=== PATIENT | female | born 1980 | race African-American/Black ===

== ENCOUNTER 2018-04-10 23:55 | Emergency (ER) | payer MEDICAID ==
[~2018-04-10] VITALS: Ht 167.6 cm; Wt 84.8 kg
[2018-04-11 00:24] VITALS: BP 145/93
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
--- NOTE | 2018-04-11 00:48 | NUR ---
Patient being evaluated by physician at bedside.
--- NOTE | 2018-04-11 00:54 | NUR ---
FAMILY AT BEDSIDE
[2018-04-11] MEDS ORDERED: IBUPROFEN 800 MG TAB PO ONE (00:55)
[2018-04-11] MEDS ORDERED: CYCLOBENZAPRINE 10 MG TAB PO ONE (00:55)
[2018-04-11 02:39] VITALS: BP 133/76
--- NOTE | 2018-04-11 02:39 | NUR ---
Patient discharged with v/s stable. Written and verbal after care instructions given and explained. Patient alert, oriented and verbalized understanding of instructions. Ambulatory with steady gait. All questions addressed prior to discharge. ID band removed. Patient advised to follow up with PMD. Rx of Ibuprofen and Flexeril given. Patient educated on indication of medication including possible reaction and side effects. Opportunity to ask questions provided and answered.
== END 2018-04-11 02:39 | disposition home or self-care (01) ==
LOC: MED 23:55
DX: S20.20XA Contusion of thorax, unspecified, initial encounter (principal); E07.9 Disorder of thyroid, unspecified; Z88.0 Allergy status to penicillin; Z88.2 Allergy status to sulfonamides; Z88.8 Allergy status to other drugs, medicaments and biological substances; V89.2XXA Person injured in unspecified motor-vehicle accident, traffic, initial encounter; Y93.89 Activity, other specified; Y92.89 Other specified places as the place of occurrence of the external cause; Y99.8 Other external cause status
CPT/HCPCS: 71101; 81025; 99283

== ENCOUNTER 2018-05-07 13:31 | Emergency (ER) | payer MEDICAID ==
[~2018-05-07] VITALS: Ht 167.6 cm; Wt 88.1 kg
[2018-05-07 13:48] VITALS: BP 169/109
--- NOTE | 2018-05-07 14:26 | NUR ---
PATIENT AMB. TO BED #7
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
[2018-05-07] MEDS ORDERED: KETOROLAC 60 MG/2 ML VIAL IM ONE (14:35)
--- NOTE | 2018-05-07 15:05 | NUR ---
Patient being evaluated by physician at bedside.
[2018-05-07 15:50] VITALS: BP 165/95
--- NOTE | 2018-05-07 15:50 | NUR ---
Patient discharged with v/s stable. Written and verbal after care instructions given and explained. Patient alert, oriented and verbalized understanding of instructions. Ambulatory with steady gait. All questions addressed prior to discharge. ID band removed. Patient advised to follow up with PMD. Rx of MOTRIN, NORCO, VALIUM given. Patient educated on indication of medication including possible reaction and side effects. Opportunity to ask questions provided and answered.
== END 2018-05-07 15:50 | disposition home or self-care (01) ==
LOC: MED 13:31
DX: M54.2 Cervicalgia (principal); R51 Headache; R11.0 Nausea; J45.909 Unspecified asthma, uncomplicated; I10 Essential (primary) hypertension; E07.9 Disorder of thyroid, unspecified; Z88.1 Allergy status to other antibiotic agents; Z88.0 Allergy status to penicillin; Z88.2 Allergy status to sulfonamides; Z90.49 Acquired absence of other specified parts of digestive tract
CPT/HCPCS: 81002; 81025; 96372; 99283; J1885

== ENCOUNTER 2018-11-03 16:21 | Emergency (ER) | payer MEDICAID ==
[~2018-11-03] VITALS: Ht 170.2 cm; Wt 84.4 kg
[2018-11-03 16:29] VITALS: BP 159/90
--- NOTE | 2018-11-03 16:31 | NUR ---
PT TRIAGED AND AMBULATED TO ER LOBBY
--- NOTE | 2018-11-03 20:12 | NUR ---
PT AMBULATED TO BED 9
--- NOTE | 2018-11-03 20:15 | NUR ---
PT CAME INTO THE ER WITH C/O PAIN TO THE LEFT SIDE/BOTTOM LIP. PT STATEDS SHE HAS A SORE ON HER LIP. PT HAS PAIN LEVEL 8/10 AT THIS TIME. PT IS A/O X4. NO DRAINAGE FROM SIGHT. PT HAS SOME SWELLING TO LIP. NO OTHER SORES NOTED ON MOUTH. ER MD MADE AWARE OF STATUS. SAFETY PRECAUTIONS IN PLACE, BED RAILS X 1 ARE UP.
--- NOTE | 2018-11-03 20:24 | NUR ---
Dr. Wise evaluating patient at bedside.
[2018-11-03 20:50] VITALS: BP 159/90
--- NOTE | 2018-11-03 20:50 | NUR ---
Patient discharged with v/s stable. Written and verbal after care instructions given and explained. Patient alert, oriented and verbalized understanding of instructions. Ambulatory with steady gait. All questions addressed prior to discharge. ID band removed. Patient advised to follow up with PMD. Pt advised to utilize chapstick and to avoid licking around her lips. Rx of Acyclovir 800mg given. Pt instructed to complete anti-viral treatment. Patient educated on indication of medication including possible reaction and side effects. Opportunity to ask questions provided and answered.
== END 2018-11-03 20:50 | disposition home or self-care (01) ==
LOC: MED 16:21
DX: B00.1 Herpesviral vesicular dermatitis (principal); J45.909 Unspecified asthma, uncomplicated; I10 Essential (primary) hypertension; E07.9 Disorder of thyroid, unspecified; Z88.1 Allergy status to other antibiotic agents; Z88.0 Allergy status to penicillin; Z88.2 Allergy status to sulfonamides
CPT/HCPCS: 81002; 81025; 99283

== ENCOUNTER 2019-04-13 23:40 | Emergency (ER) | payer MEDICAID ==
[~2019-04-13] VITALS: Ht 167.6 cm; Wt 86.2 kg
[2019-04-13 23:50] VITALS: BP 120/77
--- NOTE | 2019-04-13 23:53 | NUR ---
[facility] A/W BED AMBULATORY
--- NOTE | 2019-04-14 02:02 | NUR ---
PT ABULATED TO BED 5
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
--- NOTE | 2019-04-14 04:48 | NUR ---
PATIENT LEFT WITHOUT BEING SEEN BY DR. MCCARTNEY. NO FURTHER CARE PROVIDED FOR PATIENT.
== END 2019-04-14 04:48 | disposition left against medical advice (07) ==
LOC: MED 23:40
DX: L03.116 Cellulitis of left lower limb (principal); L03.115 Cellulitis of right lower limb; Z53.21 Procedure and treatment not carried out due to patient leaving prior to being seen by health care provider

== ENCOUNTER 2021-12-09 15:27 | Emergency (ER) | payer MEDICAID ==
[~2021-12-09] VITALS: Ht 167.6 cm; Wt 101.6 kg
[2021-12-09 15:43] VITALS: BP 120/76
[2021-12-09] MEDS ORDERED: IBUPROFEN 600 MG TAB PO ONE (15:55)
--- NOTE | 2021-12-09 16:02 | NUR ---
41/F PRESENTS TO ED WITH C/O LEFT KNEE PAIN, PATIENT DENIES RECENT INJURY OR TRAUMA. STATES PAIN CAME ON SUDDENLY AND HAS PROGRESSIVELY GOTTEN WORSE WHEN ATTEMPTING TO WALK/RUN. PATIENT REPORTS TAKING MOTRIN WITH MILD RELIEF, LEFT KNEE APPEARS SLIGHTLY RED AND SWOLLEN, SITE IS TENDER TO TOUCH.
--- NOTE | 2021-12-09 16:03 | NUR ---
RECORDS ASSOCIATE AT BEDSIDE
[2021-12-09] MEDS ORDERED: IBUP-2213 PO (16:53)
[2021-12-09 17:02] VITALS: BP 120/76
== END 2021-12-09 17:03 | disposition home or self-care (01) ==
LOC: MED 15:27
DX: S86.812A Strain of other muscle(s) and tendon(s) at lower leg level, left leg, initial encounter (principal); M17.12 Unilateral primary osteoarthritis, left knee; J45.909 Unspecified asthma, uncomplicated; I10 Essential (primary) hypertension; E07.9 Disorder of thyroid, unspecified; Z88.0 Allergy status to penicillin; Z88.2 Allergy status to sulfonamides; Z88.1 Allergy status to other antibiotic agents; Z79.899 Other long term (current) drug therapy; W19.XXXA Unspecified fall, initial encounter; Y93.89 Activity, other specified; Y92.89 Other specified places as the place of occurrence of the external cause; Y99.8 Other external cause status
CPT/HCPCS: 73562; 99283; Q0092

== ENCOUNTER 2021-12-11 07:48 | Emergency (ER) | payer MEDICAID ==
[~2021-12-11] VITALS: Ht 167.6 cm; Wt 1.8 kg
[~2021-12-11 07:48] MED LIST: IBUP-2213 PO
[2021-12-11 07:49] VITALS: BP 110/82
--- NOTE | 2021-12-11 08:02 | NUR ---
PT AMB TO BED 7. HANDED ON URINE CUP.
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
--- NOTE | 2021-12-11 08:30 | NUR ---
DR. OCAMPO BEDSIDE EVALUATING PT
[2021-12-11] MEDS ORDERED: ACETAMINOPHEN EXTRA STRENGTH 500 MG TAB PO ONE (08:35)
--- NOTE | 2021-12-11 08:44 | NUR ---
urine collected and walked to lab
--- NOTE | 2021-12-11 09:18 | NUR ---
XRAY AT PATIENT BEDSIDE
--- NOTE | 2021-12-11 09:44 | NUR ---
Patient appears to be resting comfortably in bed. Vital Signs within normal limits. Respirations even and unlabored.
[2021-12-11 10:38] VITALS: BP 138/94
[2021-12-11] MEDS ORDERED: NAPR-1871 PO (10:51)
== END 2021-12-11 10:38 | disposition home or self-care (01) ==
LOC: MED 07:48
DX: M25.472 Effusion, left ankle (principal); J45.909 Unspecified asthma, uncomplicated; I10 Essential (primary) hypertension; E07.9 Disorder of thyroid, unspecified; Z98.890 Other specified postprocedural states; Z79.899 Other long term (current) drug therapy; Z88.0 Allergy status to penicillin; Z88.1 Allergy status to other antibiotic agents; Z88.2 Allergy status to sulfonamides
CPT/HCPCS: 73600; 81002; 81025; 99283

== ENCOUNTER 2022-02-11 06:35 | Emergency (ER) | payer MEDICAID ==
[~2022-02-11] VITALS: Ht 167.6 cm; Wt 100.7 kg
[~2022-02-11 06:35] MED LIST changes: +NAPR-1871 PO
[2022-02-11 06:42] VITALS: BP 111/97
--- NOTE | 2022-02-11 06:48 | NUR ---
PT TAKEN TO ER BED 03
[2022-02-11] MEDS ORDERED: GABAPENTIN 300 MG CAP PO ONE (07:00)
--- NOTE | 2022-02-11 07:10 | NUR ---
41 Y.O. C/O numbness x 2 weeks, Patient reported, had numbness left 2 fingers for 2 weeks. BS 382. DENIES N/V/D, SOB AND CHEST PAIN. A&OX4, SKIN INTACT, STEADY GAIT, AND VITALS WNL. PMHx : DM (stop medications), HTN, HLD, Arthritis, ASTHMA ALLERGIES:SULFA, PENICILLIN,
--- NOTE | 2022-02-11 07:20 | NUR ---
Pt report given to [place]. Transfer of care at this time.
--- NOTE | 2022-02-11 07:25 | NUR ---
Report recieved from DARRION Zamarripa for transfer of care.
[2022-02-11 07:29] LABS: BASOPHILS % (AUTO) 0.5 % (0.0-2.0); EOSINOPHILS # (AUTO) 0.1 K/uL (0-0.4); EOSINOPHILS % (AUTO) 1.6 % (0.0-4.0); HEMOGLOBIN 12.5 g/dL (12.0-16.0); LYMPHOCYTES # (AUTO) 2.4 K/uL (2.5-16.5); LYMPHOCYTES % (AUTO) 41.2 % (20.5-51.1); MEAN CORPUSCULAR HEMOGLOBIN 29 pg (27-31); MEAN CORPUSCULAR HGB CONC 33 g/dL (33-37); MEAN CORPUSCULAR VOLUME 86.3 fL (80-94); MONOCYTES # (AUTO) 0.4 K/uL (0.8-1.0); MONOCYTES % (AUTO) 6.4 % (1.7-9.3); NEUTROPHILS # (AUTO) 2.9 K/uL (1.8-7.7); NEUTROPHILS % (AUTO) 50.3 % (42.2-75.2); PLATELET COUNT (AUTO) 281 K/uL (140-450); RED CELL DISTRIBUTION WIDTH 12.9 % (11.6-13.7); WHITE BLOOD COUNT (AUTO) 5.9 K/uL (4.8-10.8)
[2022-02-11] MEDS ORDERED: GABAPENTIN 100 MG CAP ONE (07:37)
[2022-02-11 07:51] LABS: ALBUMIN 3.1 g/dL (3.4-5.0); ANION GAP 11.3 (8-16); CARBON DIOXIDE 27.8 mmol/L (21-32); CREATININE 0.8 mg/dL (0.6-1.3); POTASSIUM 4.1 mmol/L (3.5-5.1); TOTAL BILIRUBIN 0.3 mg/dL (0.0-1.0)
[2022-02-11 08:33] LABS: APPEARANCE,URINE HAZY (CLEAR); BILIRUBIN,URINE NEGATIVE (NEGATIVE); BLOOD, URINE NEGATIVE (NEGATIVE); COLOR,URINE YELLOW (YELLOW); LEUKOCYTE ESTERASE ,URINE NEGATIVE (NEGATIVE); NITRITE, URINE NEGATIVE (NEGATIVE); UGLUCOSE 3+ (NEGATIVE)
[2022-02-11] MEDS ORDERED: INSULIN REGULAR, HUMAN 100 UNIT/ML VIAL SUBQ ONE (09:00)
--- NOTE | 2022-02-11 09:00 | NUR ---
Dr. Pearson re-evaluating patient at bedside.
[2022-02-11] MEDS ORDERED: LANC-886 TP (09:09)
[2022-02-11] MEDS ORDERED: BLOO1EAC40 MC (09:09)
[2022-02-11] MEDS ORDERED: METF-346 PO (09:09)
--- NOTE | 2022-02-11 09:35 | NUR ---
FABRICATED L WRIST SPLINT APPLIED TO PT L WRIST. + CMS AFTER APPLICATION. PT TOLERATED SPLINT.
--- NOTE | 2022-02-11 09:53 | NUR ---
Patient discharged with v/s stable. Written and verbal after care instructions given. Patient alert, oriented and verbalized understanding of instructions. Ambulatory with steady gait. All questions addressed prior to discharge. ID band removed. Patient advised to follow up with PMD. Rx of Blood-Glucose Meter, Lancets and Metformin given. Opportunity to ask questions provided and answered.
[2022-02-11 09:54] VITALS: BP 122/85
--- NOTE | 2022-02-11 09:54 | NUR ---
The patient's care was reviewed and supervised by Yomaira Grove RN.
== END 2022-02-11 09:53 | disposition home or self-care (01) ==
LOC: MED 06:35
DX: E11.40 Type 2 diabetes mellitus with diabetic neuropathy, unspecified (principal); E11.65 Type 2 diabetes mellitus with hyperglycemia; E03.9 Hypothyroidism, unspecified; J45.909 Unspecified asthma, uncomplicated; I10 Essential (primary) hypertension; Z79.4 Long term (current) use of insulin; Z79.899 Other long term (current) drug therapy; Z88.0 Allergy status to penicillin; Z88.2 Allergy status to sulfonamides; Z88.1 Allergy status to other antibiotic agents
CPT/HCPCS: 29125; 36415; 80053; 81003; 81025; 82009; 82948; 85025; 96372; 99283; J1815

== ENCOUNTER 2022-02-15 16:28 | Emergency (ER) | payer MEDICAID ==
[~2022-02-15] VITALS: Ht 167.6 cm; Wt 100.3 kg
[~2022-02-15 16:28] MED LIST changes: +BLOO1EAC40 MC; +LANC-886 TP; +METF-346 PO
[2022-02-15 16:42] VITALS: BP 131/91
== END 2022-02-15 18:42 | disposition home or self-care (01) ==
LOC: MED 16:28
DX: E88.09 Other disorders of plasma-protein metabolism, not elsewhere classified (principal); R60.0 Localized edema; E11.9 Type 2 diabetes mellitus without complications; E03.9 Hypothyroidism, unspecified; J45.909 Unspecified asthma, uncomplicated; I10 Essential (primary) hypertension; Z88.0 Allergy status to penicillin; Z88.2 Allergy status to sulfonamides; Z88.1 Allergy status to other antibiotic agents; Z79.4 Long term (current) use of insulin; Z79.899 Other long term (current) drug therapy
CPT/HCPCS: 81002; 81025; 99282

== ENCOUNTER 2022-05-13 20:09 | Emergency (ER) | payer MEDICAID ==
[~2022-05-13] VITALS: Ht 167.6 cm; Wt 100.2 kg
[2022-05-13 20:30] VITALS: BP 146/110
--- NOTE | 2022-05-13 20:39 | NUR ---
PT AMBULATED TO ED 8, REPORT GIVEN TO DAPHNE MAIER. PT PROVIDED URINE SAMPLE.
[2022-05-13] MEDS ORDERED: ALBUTEROL SULFATE/IPRATROPIU 3 ML SOL IH ONE (20:45)
--- NOTE | 2022-05-13 20:50 | NUR ---
SPOKE TO PATIENT AT BEDSIDE; PATIENT REPORTS COVID LIKE SYMPTOMS x4 DAYS *COUGHING, DIARRHEA, HEADACHE, FATIGUE PATIENT REPORTS GETTING ONE COVID VACCINE (MODERNA, IN NOVEMBER 2021) PATIENT STATES THAT SHE TOOK A HOME COVID TEST WHICH WAS (+). PATIENT HAS BEEN SELF TREATING SYMPTOMS AT HOME WITH THERA-FLU, ROBITUSSIN, AND MOTRIN. PMH: *ASTHMA *HTN *DM
--- NOTE | 2022-05-13 20:53 | NUR ---
RT AT BEDSIDE FOR TREATMENT
--- NOTE | 2022-05-13 20:54 | NUR ---
RADIOLOGY AT BEDSIDE FOR XRAY
[2022-05-13 22:58] VITALS: BP 132/98
== END 2022-05-13 22:55 | disposition home or self-care (01) ==
LOC: MED 20:09
DX: U07.1 COVID-19 (principal); J45.909 Unspecified asthma, uncomplicated; E11.9 Type 2 diabetes mellitus without complications; Z79.4 Long term (current) use of insulin; Z79.899 Other long term (current) drug therapy
CPT/HCPCS: 71045; 82948; 94640; 99284; Q0092

== ENCOUNTER 2023-03-11 18:34 | Emergency (ER) | payer MEDICAID ==
[~2023-03-11] VITALS: Ht 167.6 cm; Wt 97.1 kg
[2023-03-11 18:52] VITALS: BP 120/72; PULSE 94; RESP 16; TEMP 98.1; O2SAT 95
[2023-03-11] MEDS ORDERED: LIDOCAINE MPF 1% 10 MG/ML VIAL INJ ONE (19:45)
[2023-03-11] MEDS ORDERED: IBUPROFEN 600 MG TAB PO ONE (19:45)
[2023-03-11] MEDS ORDERED: BACI-418 TP (20:18)
[2023-03-11] MEDS ORDERED: BACITRACIN OINT 500 UNITS/GM PKT TP ONE (20:40)
[2023-03-11 20:51] VITALS: BP 122/72; PULSE 94; RESP 16; TEMP 98.1; O2SAT 95
== END 2023-03-11 20:51 | disposition home or self-care (01) ==
LOC: MED 18:34
DX: S81.812A Laceration without foreign body, left lower leg, initial encounter (principal); J45.909 Unspecified asthma, uncomplicated; E11.9 Type 2 diabetes mellitus without complications; I10 Essential (primary) hypertension; E07.9 Disorder of thyroid, unspecified; Z88.0 Allergy status to penicillin; Z88.1 Allergy status to other antibiotic agents; Z88.2 Allergy status to sulfonamides; Z79.84 Long term (current) use of oral hypoglycemic drugs; Z79.899 Other long term (current) drug therapy; W45.8XXA Other foreign body or object entering through skin, initial encounter; Y93.89 Activity, other specified; Y92.89 Other specified places as the place of occurrence of the external cause; Y99.8 Other external cause status
CPT/HCPCS: 12002; 99283; J2001

== ENCOUNTER 2023-03-19 12:51 | Emergency (ER) | payer MEDICAID ==
[~2023-03-19] VITALS: Ht 167.6 cm; Wt 94.1 kg
[~2023-03-19 12:51] MED LIST changes: +BACI-418 TP
[2023-03-19 13:08] VITALS: BP 127/79; PULSE 87; RESP 18; TEMP 97.7; O2SAT 95
[2023-03-19 14:15] VITALS: BP 127/79; PULSE 87; RESP 18; TEMP 97.7; O2SAT 95
== END 2023-03-19 14:15 | disposition home or self-care (01) ==
LOC: MED 12:51
DX: T78.49XA Other allergy, initial encounter (principal); J45.909 Unspecified asthma, uncomplicated; I10 Essential (primary) hypertension; E11.9 Type 2 diabetes mellitus without complications; E07.9 Disorder of thyroid, unspecified; Z48.02 Encounter for removal of sutures; Z88.0 Allergy status to penicillin; Z88.1 Allergy status to other antibiotic agents; Z88.2 Allergy status to sulfonamides; Z79.899 Other long term (current) drug therapy
CPT/HCPCS: 82948; 99282

== ENCOUNTER 2023-03-21 17:27 | Emergency (ER) | payer MEDICAID ==
[~2023-03-21] VITALS: Ht 167.6 cm; Wt 79.4 kg
[2023-03-21 17:47] VITALS: BP 179/104; PULSE 79; RESP 17; TEMP 97.7; O2SAT 98
[2023-03-21] MEDS ORDERED: BACITRACIN OINT 500 UNITS/GM PKT TP ONE (19:35)
[2023-03-21] MEDS ORDERED: LORA1T1237 PO (19:57)
[2023-03-21] MEDS ORDERED: CLIN300C2 PO (19:57)
[2023-03-21 20:47] VITALS: BP 133/76; PULSE 79; RESP 16; TEMP 97.9; O2SAT 98
== END 2023-03-21 20:47 | disposition home or self-care (01) ==
LOC: MED 17:27
DX: S81.812D Laceration without foreign body, left lower leg, subsequent encounter (principal); J45.909 Unspecified asthma, uncomplicated; I10 Essential (primary) hypertension; E11.9 Type 2 diabetes mellitus without complications; E03.9 Hypothyroidism, unspecified; Z79.4 Long term (current) use of insulin; Z79.899 Other long term (current) drug therapy; Z88.0 Allergy status to penicillin; Z88.2 Allergy status to sulfonamides; Z88.8 Allergy status to other drugs, medicaments and biological substances; X58.XXXD Exposure to other specified factors, subsequent encounter
CPT/HCPCS: 99283

== ENCOUNTER 2023-09-05 22:06 | Emergency (ER) | payer MEDICAID, OTHER ==
[~2023-09-05] VITALS: Ht 167.6 cm; Wt 89.8 kg
[~2023-09-05 22:06] MED LIST changes: +CLIN300C2 PO; +LORA1T1237 PO
[2023-09-05 22:27] VITALS: BP 167/87; PULSE 87; RESP 16; TEMP 96.4; O2SAT 96
[2023-09-06 00:51] VITALS: O2SAT 99
[2023-09-06 01:19] LABS: BASOPHILS % (AUTO) 0.8 % (0.0-2.0); EOSINOPHILS # (AUTO) 0.2 K/uL (0-0.4); EOSINOPHILS % (AUTO) 3.5 % (0.0-4.0); HEMOGLOBIN 12.5 g/dL (12.0-16.0); LYMPHOCYTES # (AUTO) 2.8 K/uL (2.5-16.5); LYMPHOCYTES % (AUTO) 42.6 % (20.5-51.1); MEAN CORPUSCULAR HEMOGLOBIN 29 pg (27-31); MEAN CORPUSCULAR HGB CONC 33 g/dL (33-37); MEAN CORPUSCULAR VOLUME 87.8 fL (80-94); MONOCYTES # (AUTO) 0.5 K/uL (0.8-1.0); MONOCYTES % (AUTO) 7.2 % (1.7-9.3); NEUTROPHILS % (AUTO) 45.9 % (42.2-75.2); PLATELET COUNT (AUTO) 310 K/uL (140-450); RED BLOOD CELL COUNT(AUTO) 4.33 MIL/uL (4.20-5.40); RED CELL DISTRIBUTION WIDTH 13.7 % (11.6-13.7); WHITE BLOOD COUNT (AUTO) 6.6 K/uL (4.8-10.8)
[2023-09-06] MEDS: hydrALAZINE 20 MG/ML VIAL IVP ONE ×2 (01:34→03:32)
[2023-09-06 01:35] LABS: ANION GAP 6.4 (8-16); CALCIUM 8.4 mg/dL (8.5-10.1); CARBON DIOXIDE 31.4 mmol/L (21-32); CREATININE 0.7 mg/dL (0.6-1.3); POTASSIUM 3.8 mmol/L (3.5-5.1)
[2023-09-06] MEDS: ONDANSETRON 4 MG/2 ML VIAL IVP ONE (03:27)
[2023-09-06] MEDS: MORPHINE SULFATE 4 MG/ML SYR IVP ONE (03:29)
[2023-09-06] MEDS ORDERED: LOSA-272 PO (04:04)
[2023-09-06] MEDS ORDERED: HYDR12.51 PO (04:04)
[2023-09-06 04:10] VITALS: BP 143/85; PULSE 92; RESP 17; TEMP 97.9; O2SAT 99
== END 2023-09-06 04:10 | disposition home or self-care (01) ==
LOC: MED 22:06
DX: I10 Essential (primary) hypertension (principal); R51.9 Headache, unspecified; J45.909 Unspecified asthma, uncomplicated; E11.9 Type 2 diabetes mellitus without complications; Z86.39 Personal history of other endocrine, nutritional and metabolic disease; Z90.49 Acquired absence of other specified parts of digestive tract; Z98.890 Other specified postprocedural states; Z79.899 Other long term (current) drug therapy; Z79.2 Long term (current) use of antibiotics; Z79.1 Long term (current) use of non-steroidal anti-inflammatories (NSAID); Z88.2 Allergy status to sulfonamides; Z88.1 Allergy status to other antibiotic agents; Z88.0 Allergy status to penicillin
CPT/HCPCS: 36415; 70450; 80048; 84484; 85025; 93005; 96374; 96375; 96376; 99285; J0360; J2270; J2405